=== PATIENT | female | born 1950 | race Caucasian/White ===

== ENCOUNTER → 2022-12-16 | Outpatient (CLI) | payer MEDICARE, BC ==
[~2022-12-16] MED LIST: HYDR25TA5 GT; RAM10T PO
== END | disposition home or self-care (01) ==
LOC: Rad HDHVI 14:53
PROVIDERS: ATTEND Internal Medicine Cardiovascular Disease
DX: I08.1 Rheumatic disorders of both mitral and tricuspid valves (principal); I11.9 Hypertensive heart disease without heart failure; R00.1 Bradycardia, unspecified
CPT/HCPCS: 93306

== ENCOUNTER → 2022-12-29 | Outpatient (CLI) | payer MEDICARE, BC ==
[~2022-12-29] VITALS: Ht 167.6 cm; Wt 95.3 kg
[~2022-12-29] MED LIST changes: +ADENOSINE 80 MG in GIVE UN-DILUTED 0 ML IV ONE; +ADENOSINE 90 MG/30 ML INJ IV ONE
== END | disposition home or self-care (01) ==
LOC: Rad HDHVI 13:05
PROVIDERS: ATTEND Internal Medicine Cardiovascular Disease
DX: I10 Essential (primary) hypertension (principal); I48.91 Unspecified atrial fibrillation; Z82.49 Family history of ischemic heart disease and other diseases of the circulatory system
CPT/HCPCS: 78452; 93005; 96374; 96375; A9500; J0153